=== PATIENT | male | born 2000 | race Caucasian/White ===

== ENCOUNTER 2018-12-21 08:15 | Day surgery (SDC) | payer OTHER ==
--- NOTE | 2018-12-21 08:52 | RAD ---
PORTABLE CHEST: Date: 12-21-18 Provided Clinical History: Chest pain. FINDINGS: No comparisons. The heart and mediastinum appear normal for portable technique. No focal consolidatio n, pleural fluid or pneumothorax apparent. IMPRESSION: No evidence for acute cardiopulmonary process. POS: [facility]
[2018-12-21] MEDS ORDERED: Ondansetron PF 4 MG/2 ML Vial ONE (08:54)
[2018-12-21 08:56] LABS: #Basophils 0.1 thou/uL (0.0-0.2); #Eosinphils 0.4 thou/uL (0.0-0.7); #Lymphocytes 3.3 thou/uL (1.20-3.40); #Neutrophils 4.9 thou/uL (1.40-6.50); %Basophils 1.3 % (0.0-1.0); %Eosinophils 4.7 % (0.0-10.0); %Lymphocytes 33.8 % (28.0-48.0); %Monocytes 9.9 % (0.0-4.0); %Neutrophils 50.3 % (31.0-61.0); Hemoglobin 16.4 g/dL (14.0-18.0); Mean Corpuscular HGB CONC 34.1 g/dL (32.0-36.0); Mean Corpuscular Hemoglobin 31.1 pg (25.0-35.0); Mean Corpuscular Volume 91.1 fL (78.0-98.0); Mean Platelet Volume 7.9 fL (7.4-10.4); Platelet Count 339 thou/uL (130-400); RBC Distribution Width 11.9 % (11.5-14.5); Red Blood Cell (RBC) Count 5.26 mill/uL (4.00-5.20); White Blood Cell (WBC) Count 9.6 thou/uL (4.8-10.8)
[2018-12-21 09:39] LABS: ALT (SGPT) 46 U/L (8-55); AST (SGOT) 19 U/L (5-34); Albumin 4.6 g/dL (3.5-5.0); Alkaline Phosphatase 73 U/L (Less than 750); Anion Gap 13 mmol/L (10-20); BUN (Urea Nitrogen) 12 mg/dL (8.9-20.6); Bilirubin, Total 2.3 mg/dL (0.2-1.2); Calc. Creatinine Clearance 0 mL/min (70-130); Calcium 9.8 mg/dL (7.8-10.44); Carbon Dioxide 24 mmol/L (22-29); Chloride 104 mmol/L (98-107); Estimated GFR-MDRD Greater than 90; Globulin 3.3 g/dL (2.4-3.5); Glucose 97 mg/dL (70-105); Potassium 3.8 mmol/L (3.5-5.1); Protein, Total 7.9 g/dL (6.0-8.3); Sodium 137 mmol/L (136-145)
[2018-12-21] MEDS ORDERED: Albuterol Sulfate HFA (OR ONLY) ONE (12:43)
--- NOTE | 2018-12-21 12:51 | HP ---
DATE OF CONSULTATION: 12/21/2018 REASON FOR CONSULTATION: Esophageal food bolus impaction. CONSULTING PHYSICIAN: Walter Edmond MD HISTORY OF PRESENT ILLNESS: The patient is a 18-year-old male with past medical history of migraine headaches, who is presenting with the esophageal dysphagia concerning for food bolus impaction. He states that he was in his usual state of health until approximately December 19, 2018, when he was eating a breakfast burrito at 10:30 p.m., when he experienced a sensation that the food he had eaten had gotten stuck at the level of the xiphoid process. This was associated with increased, sharp, nonradiating type pain that was intermittent and reached a severity of 1 to 2/10. Multiple attempts at both eating solid foods and drinking were unsuccessful resulting in vomiting of ingested food stuffs. However, if he was able to slowly drink liquids, he states that he was able to tolerate that well. With the continued sensation that this food was within the bottom esophagus, it prompted him to seek healthcare assistance at [facility]. Upon in the ER, he was evaluated by the ER physician and diagnosed with esophageal food bolus impaction and urgently transferred to Day Stay for urgent upper endoscopy. Currently, he denies any nausea, vomiting, fevers, chills, hematemesis, melena, hematochezia, diarrhea, or constipation. He does not have an emesis bag or spit cup at bedside and is able to tolerate his own secretions. REVIEW OF SYSTEMS: A 10-category review of systems was obtained with all responses negative, except for the pertinent positives as listed in the HPI. PAST MEDICAL HISTORY: Migraine headaches, insomnia. PAST SURGICAL HISTORY: None. FAMILY HISTORY: Migraine headaches, unknown cancer with paternal grandmother, colon cancer diagnosed in a maternal grandmother and in his 80s. SOCIAL HISTORY: He does have vape daily with no tobacco abuse. Drinks approximately 1 to 2 beers weekly, and denies any illicit drug use. OUTPATIENT MEDICATIONS: Include Excedrin, topiramate, trazodone. ALLERGIES: NO KNOWN DRUG ALLERGIES. PHYSICAL EXAMINATION: VITAL SIGNS: Pulse 85, blood pressure 127/87, temperature 98.2, respiratory rate 16, saturating 98% on room air. GENERAL: The patient is lying in bed, in no acute distress. Alert and oriented x4. HEENT: No scleral icterus or JVD noted. Normocephalic, atraumatic. NECK: Supple. CARDIOVASCULAR: Regular rate and rhythm with no discernible murmurs, gallops, or rubs. PULMONARY: Clear to auscultation bilaterally with no discernible wheezes or rales. ABDOMEN: Normoactive bowel sounds. Soft, nontender, nondistended. EXTREMITIES: No cyanosis, clubbing, or edema. LABORATORY DATA: CBC with a white blood cell count of 9.6, hemoglobin 16.4, hematocrit 48, platelets 339. Chemistry with a sodium of 137, potassium 3.8, chloride 104, CO2 of 24, BUN 12, creatinine 0.88, glucose 97, AST 19, ALT 46, alkaline phosphatase 73, total bilirubin 2.3, albumin 4.6. IMAGING DATA: Chest x-ray was obtained on December 21, 2018, which showed no evidence of acute cardiopulmonary process. ASSESSMENT AND PLAN: The patient is a 18-year-old male with past medical history of migraine headaches, presenting with acute esophageal food bolus impaction. Esophageal food bolus impaction. The patient is presenting with acute onset of dysphagia occurring on December 19, 2018 while eating a breakfast burrito at 10:30 p.m. and characterized as a sensation that the food is getting stuck in the xiphoid process. He states that this has happened once before, but spontaneously resolved on its own. At this time, it is unclear as to the etiology for the food bolus impaction, but it could include swallowing a larger bit of food stuffs that could be adequately tolerated by the esophagus, esophageal stricture, esophageal stenosis, esophageal mass, eosinophilic esophagitis, achalasia (less likely). At this point, he would benefit from urgent upper endoscopy. RECOMMENDATIONS: 1. We will continue the patient on n.p.o. status. 2. We will take the patient for urgent upper endoscopy for further evaluation. 3. Further recommendations to follow EGD. We will continue to follow. Please call with any questions. Job ID: [id number]
--- NOTE | 2018-12-21 14:09 | OP ---
DATE OF PROCEDURE: 12/21/2018 PROCEDURE PERFORMED: Esophagogastroduodenoscopy with removal of foreign body. INDICATION FOR PROCEDURE: Esophageal food bolus impaction. DESCRIPTION OF PROCEDURE: After the risks and benefits of the procedure were explained to the patient including risks of bleeding, infection, perforation, reactions to anesthesia, aspiration and/or pain, informed consent was obtained. The patient was then taken to the endoscopy suite, where deep sedation was administered via propofol and anesthesia support. Once the patient was adequately sedated and placed in the left lateral decubitus position, the standard gastroscope was introduced into the mouth with intubation of the proximal esophagus. A large food bolus was seen at approximately 32 cm past the incisors, that was unable to be gently moved into the distal esophagus. The patient did exhibit increased coughing during this portion of the procedure, so the scope was withdrawn from the patient and the patient underwent rapid induction sequence with general anesthesia and ultimately intubation prior to further proceeding with the upper endoscopy. Once the patient was intubated and sedated, he was then placed back in the left lateral decubitus position and the scope was then advanced back to the proximal esophagus. Using a snare, the piece of potato in the midesophagus was then cut into smaller pieces and once an adequate size was achieved, it spontaneously moved into the stomach. With the food bolus removed, intubation of the distal esophagus, the stomach, and the proximal portion of the small intestines was achieved with adequate views obtained. The patient tolerated the procedure well with no immediate perioperative complications. Upon conclusion of the procedure, all equipment was removed from the patient and he was transferred to PACU in satisfactory condition. FINDINGS: Esophagus: Normal-appearing mucosa was seen in the proximal esophagus; however, a large potato food bolus was seen at approximately 32 cm past the incisors, that was unable to be initially moved into the stomach with gentle pressure. After the patient was intubated and sedated, a snare was then employed to slice the potato into smaller pieces and once an adequate size was achieved, it spontaneously moved into the stomach. The remaining pieces were then gently advanced into the stomach using the scope itself. Upon evaluation of the mid and distal esophagus, there was significant mucosal erythema and friability of the midesophagus with mucosal breakdown, but no evidence of perforation. There was also evidence of "ribbing" of the esophagus, seen in the mid and distal portion of the esophagus, as well as linear furrows extending longitudinally along the length of the esophagus. Biopsies were then taken in the proximal and distal portion of the esophagus for possible eosinophilic esophagitis. A nonobstructive fibrous ring was seen at 38 cm past the incisors, that was easily traversed with the standard gastroscope. This was not the site of the initial food bolus impaction. The esophageal stricture appeared benign and intrinsic. The diaphragmatic pinch was seen at 41 cm while the GE junction was well seen at 39 cm denoting a 2 cm hiatal hernia. Otherwise, there was no evidence of ulcerations or mass lesions. Stomach: Normal-appearing mucosa was seen in the gastric cardia, fundus, body, greater curvature, antrum, and incisura. There was no evidence of erosions, ulcerations, mass, lesions, or active/recent bleeding. A small hiatal hernia was seen on gastric retroflexion. Duodenum: Normal-appearing mucosa was seen in both the duodenal bulb and second portion of the duodenum. There was no evidence of erosions, ulcerations, mass, lesions, or active/recent bleeding. IMPRESSION: 1. Esophageal food bolus impaction/foreign body at 32 cm, successfully removed via endoscopy snare. 2. Esophageal mucosal findings concerning for eosinophilic esophagitis status post biopsies. 3. Nonobstructive esophageal ring at 38 cm past the incisors (not the cause of the impaction). 4. 2 cm hiatal hernia. RECOMMENDATION: 1. We will follow up on the biopsy results with further management guided by the pathology report. 2. We will place the patient on omeprazole 40 mg daily given the presence of esophageal stricture that is probably acid reflux mediated. 3. Continue current other medications, but would avoid any NSAIDs. 4. We would maintain the patient on a liquid diet for the next 24 to 48 hours, then advance diet as tolerated to a soft diet until seen in GI clinic. 5. We would have the patient follow up in the GI clinic in 2 to 3 weeks for further evaluation. 6. The patient can be discharged to home upon meeting PACU criteria. Job ID: [id number]
== END 2018-12-21 14:38 | disposition home or self-care (01) ==
LOC: ERS 08:15 → SDC 10:25
PROVIDERS: ATTEND Internal Medicine
PROC: 0DC58ZZ Extirpation of Matter from Esophagus, Via Natural or Artificial Opening Endoscopic (ICD-10-PCS; principal; 2018-12-21)
PROC: 0DB58ZZ Excision of Esophagus, Via Natural or Artificial Opening Endoscopic (ICD-10-PCS; principal; 2018-12-21)
DX: T18.128A Food in esophagus causing other injury, initial encounter (principal); K44.9 Diaphragmatic hernia without obstruction or gangrene; K20.9 Esophagitis, unspecified; F17.290 Nicotine dependence, other tobacco product, uncomplicated; F32.9 Major depressive disorder, single episode, unspecified; Z79.899 Other long term (current) drug therapy
CPT/HCPCS: 71045; 80053; 85025; 88305; 88312; 88313; J1610; J2405